=== PATIENT | male | born 1960 | race Two or more races ===

== ENCOUNTER 2024-04-21 22:06 | Emergency (ER) | payer MEDICARE, OTHER ==
[~2024-04-21] VITALS: Ht 175.3 cm; Wt 84.8 kg
[2024-04-21] MEDS: KETOROLAC TROMETH 60MG/2ML VIAL IM ONE (22:34)
[2024-04-21 22:52] LABS: Basophils # (auto) 0.1 10 ^3/uL (0-0.2); Basophils % (auto) 0.8 % (0.0-2.0); Eosinophils # (auto) 0 10 ^3/uL (0-0.8); Eosinophils % (auto) 0.3 % (0.0-7.0); Hematocrit 36.9 % (41.0-53.0); Hemoglobin 12.7 g/dL (13.5-17.5); Lymphocytes % (auto) 23.4 % (10.0-50.0); Mean Corpuscular Hemoglobin 34.7 pg (28.0-32.0); Mean Corpuscular Hgb Conc. 34.4 g/dL (32.0-36.0); Monocytes # (auto) 0.5 10 ^3/uL (0-1.3); Monocytes % (auto) 6.3 % (0.0-12.0); Neutrophils % (auto) 69.2 % (37.0-80.0); Red Blood Cells 3.65 10^6/uL (4.5-5.90); Red Cell Distribution Width 14.7 % (11.8-14.3); White Blood Cell 8.6 10^3/uL (4.4-10.8)
[2024-04-21 23:09] LABS: Alanine Aminotransferase 19 U/L (7-40); Albumin 4.4 g/dL (3.2-4.8); Alkaline Phosphatase 77 U/L (46-116); Anion Gap 9 (5-15); Aspartate Aminotransferase 11 U/L (13-40); BUN/Creatinine Ratio 12.5 (10.0-20.0); Bilirubin, Total 0.6 mg/dL (0.2-1.0); Blood Urea Nitrogen 12 mg/dL (9-23); Calcium 9.6 mg/dL (8.7-10.4); Carbon Dioxide 20 mmol/L (20-30); Chloride 103 mmol/L (98-107); Glucose 107 mg/dL (74-106); Lipase 44 U/L (12-53); Potassium 3.7 mmol/L (3.5-5.1); Sodium 132 mmol/L (136-145); Total Protein 7.8 g/dL (5.7-8.2)
[2024-04-22] MEDS: FLEET ENEMA(ADULT) 135 ML PR ONE (00:30)
[2024-04-22] MEDS: LACTULOSE 20Gm/30ML SOLN PO ONE (00:30)
[2024-04-22 00:57] VITALS: BP 117/76; PULSE 76; RESP 17; O2SAT 100
[2024-04-22 00:58] LABS: Urine Bacteria None Seen /hpf (None Seen)
[2024-04-22 01:05] LABS: Urine Blood Negative /uL (Negative); Urine Clarity Clear (Clear); Urine Color Light-Yellow (Yellow); Urine Protein, UAD Negative (Negative); Urine Urobilinogen Normal (Negative); Urine WBC 1 /hpf (0 - 3)
[2024-04-22] MEDS ORDERED: LACT10SO3 PO (01:30)
== END 2024-04-22 01:48 | disposition home or self-care (01) ==
LOC: ER 22:06
DX: K59.00 Constipation, unspecified (principal)
CPT/HCPCS: 36415; 74176; 80053; 81001; 83605; 83690; 83880; 85025; J1885